=== PATIENT | female | born 1980 ===

== ENCOUNTER 2020-10-31 14:36 | Emergency (ER) | payer SELFPAY ==
[~2020-10-31] VITALS: Ht 167.6 cm; Wt 62.0 kg
[2020-10-31 15:16] LABS: BASOPHILS % (AUTO) 1 % (0-1); EOSINOPHILS % (AUTO) 1 % (1-7); LYMPHOCYTES % (AUTO) 22 % (22-44); MEAN CORPUSCULAR HEMOGLOBIN 31.9 pg (27.0-34.8); MEAN CORPUSCULAR HGB CONC 33.3 g/dL (32.4-35.8); MEAN PLATELET VOLUME 7.7 fL (7.4-10.4); MONOCYTES % (AUTO) 6 % (2-9); NEUTROPHILS % (AUTO) 71 % (42-75); PLATELET COUNT 408 x10^3/uL (130-400); RED BLOOD COUNT 4.24 x10^6/uL (3.82-5.3); RED CELL DISTRIBUTION WIDTH 13.3 % (9.6-15.2)
[2020-10-31 15:18] LABS: MD NO
[2020-10-31 15:30] LABS: ALANINE AMINOTRANSFERASE 18 U/L (12-78); ALBUMIN 3.7 g/dL (3.4-5.0); ANION GAP 6 mmol/L (5-15); CALCIUM 9.1 mg/dL (8.5-10.1); CHLORIDE 104 mmol/L (98-107); CREATININE 0.85 mg/dL (0.55-1.02)
[2020-10-31 15:34] LABS: ALKALINE PHOSPHATASE 70 U/L (45-117); BILIRUBIN,TOTAL 0.4 mg/dL (0.2-1.0); TOTAL PROTEIN 7.3 g/dL (6.4-8.2); TROPONIN I < 0.015 ng/mL (0.000-0.045)
--- NOTE | 2020-10-31 17:45 | NUR ---
PT SITTING AT DOOR DEMANDING TO BE NEXT TO GET A BED. UPDATED ON ROOM PRIORITY. HAD REPEAT EKG BASED ON SYMPTOMS. MOTHER ALSO WITH PT DEMANDING THAT I LOOK AT HER "VAGINA PICTURES". AGAIN EXPLAINED THAT I WILL ROOM HER BASED ON SEVERITY AND ASSURED HER I AM NOT TAKING HER COMPLAINT LIGHTLY. PT INITIAL COMPLAINT CHEST PAIN, BUT NOT STATES THAT SHE FEELS LIKE SHE HAS A METAL FITO IN HER VAGINA.
[2020-10-31] MEDS ORDERED: SODIUM CHLORIDE FLUSH 10ML SYR IVF ONE (18:30)
[2020-10-31 18:47] LABS: INTERNATIONAL NORMALIZED RATIO 0.94 (0.93-1.1)
[2020-10-31 18:48] LABS: MICROSCOPIC AUTO
[2020-10-31 18:59] LABS: AMPHETAMINE SCREEN, URINE Negative (Negative); BARBITURATE SCREEN, URINE Negative (Negative); CANNABINOID SCREEN, URINE Negative (Negative)
[2020-10-31 19:00] LABS: BENZODIAZEPINE SCREEN, URINE Positive (Negative); COCAINE SCREEN, URINE Negative (Negative); METHADONE SCREEN, URINE Negative (Negative); OPIATE SCREEN, URINE Positive (Negative)
[2020-10-31] MEDS ORDERED: LIDOCAINE-MPF 1%, 5ML ONE ×2 (19:25→19:46)
--- NOTE | 2020-10-31 19:27 | NUR ---
1ST CONTACT C PT. RESTING ON CART IN NAD. AT BS FOR PELVIC, PT REQUESTING I/D "TO REMOVE BLOOD CLOT". ADDITIONAL SUPPLIED AT BS.
[2020-10-31 20:23] VITALS: BP 110/89
== END 2020-10-31 20:26 | disposition home or self-care (01) ==
LOC: ED 15:00
DX: N75.1 Abscess of Bartholin's gland (principal); R07.89 Other chest pain; R94.31 Abnormal electrocardiogram [ECG] [EKG]
CPT/HCPCS: 36415; 56420; 71045; 80053; 80307; 81001; 83690; 84484; 84703; 85025; 85610; 85730; 87086; 87806; 93005; 99285; G0475